=== PATIENT | female | born 1985 | race Two or more races ===

== ENCOUNTER 2024-03-13 09:37 | Emergency (ER) | payer SELFPAY ==
[2024-03-13 09:46] VITALS: RESP 18; BMI 33.3
[2024-03-13 11:24] VITALS: BP 98/58; PULSE 77; TEMP 97.8
== END 2024-03-13 11:54 | disposition home or self-care (01) ==
LOC: JER 09:37
DX: O09.521 Supervision of elderly multigravida, first trimester (principal); O20.8 Other hemorrhage in early pregnancy; O26.891 Other specified pregnancy related conditions, first trimester; R11.0 Nausea; Z3A.00 Weeks of gestation of pregnancy not specified
CPT/HCPCS: 99283-25; 99284-25